=== PATIENT | female | born 1950 | race Caucasian/White ===

== ENCOUNTER 2022-09-23 15:21 | Emergency (ER) | payer BC, MEDICAID ==
[~2022-09-23] VITALS: Ht 157.5 cm; Wt 65.0 kg
[2022-09-23 15:25] VITALS: BP 179/90
[2022-09-23] MEDS ORDERED: LOSA50TA41 MT (19:07)
== END 2022-09-23 19:20 | disposition home or self-care (01) ==
LOC: ER 15:21
DX: I10 Essential (primary) hypertension (principal); Z76.0 Encounter for issue of repeat prescription; Z88.0 Allergy status to penicillin
CPT/HCPCS: 99281; 99283